=== PATIENT | male | born 1990 | race Two or more races ===

== ENCOUNTER 2017-10-12 18:45 | Emergency (ER) | payer OTHER ==
[~2017-10-12] VITALS: Ht 180.3 cm; Wt 85.6 kg
[2017-10-12 18:47] VITALS: BP 134/80
== END 2017-10-12 21:55 | disposition home or self-care (01) ==
LOC: ED 21:49
DX: S80.11XA Contusion of right lower leg, initial encounter (principal); W21.07XA Struck by softball, initial encounter; Y93.64 Activity, baseball; Y92.328 Other athletic field as the place of occurrence of the external cause; Y99.8 Other external cause status
CPT/HCPCS: 99284